=== PATIENT | female | born 1935 | race Caucasian/White ===

== ENCOUNTER → 2017-01-25 | Outpatient (CLI) | payer MEDICARE ==
[~2017-01-25] MED LIST: AUGMENTIN 875-1 EACH PO; BUPROPION XL150 MG PO; ELIQUIS5 MG PO; METOPROLOL TART25 MG PO; NEURONTIN 400400 MG PO; NOVOLOG MI100 UNIT/1 SQ; NYSTOP60 GM TP; PANTOPRAZOLE SO40 MG PO; TIKOSYN125 MCG PO; TYLENOL W/CODEIN1 E1 PO
== END ==
LOC: KOH-I 14:14
DX: R05 Cough (principal); R50.9 Fever, unspecified
CPT/HCPCS: 71020

== ENCOUNTER → 2017-02-22 | Outpatient (CLI) | payer MEDICARE | LOC: LAB 10:00 | DX: D64.9 Anemia, unspecified (principal) | CPT/HCPCS: 82272 ==

== ENCOUNTER 2020-09-13 13:22 | Inpatient (IN) | payer MEDICARE ==
[~2020-09-13 13:22] MED LIST changes: +ASPIRIN EC81 MG PO; +BREO ELLIPTA 11 EACH INH; +CYMBALTA60 MG PO; +DOK PLUS TABLE1 EACH PO; +HYTRIN CAP 1 MG1 MG PO; +LEVEMIR100 UNIT/1 SQ; +LIDODERM PATCH 5% TOP; +LIORESAL TAB 1010 MG PO; +MACROBID 100 M100 MG PO; +MAPAP325 MG PO; +NORCO 5-325 TA1 EACH PO; +NOVOLOG 10100 UNITS/ SQ; -NOVOLOG MI100 UNIT/1 SQ; +POLYETHYLENE GL17 GM PO; +PROTONIX40 MG PO; +THERAGRAN M TAB1 EA PO; +TRESIBA FL100 UNIT/1 SQ; +VENTOLIN HFA 66.7 GM INH; +VITAMIN D250000 UNIT PO; +VOLTAREN100 GM TP; +ZEBETA 5 MG TAB5 MG PO
[2020-09-13 15:32] LABS: HEMOGLOBIN 11.3 gm/dl (12.3-15.3); RED BLOOD COUNT 4.02 M/UL (4.00-5.10); WHITE BLOOD COUNT 5.7 K/UL (4.5-11.0)
[2020-09-14] MEDS ORDERED: GABAPENTIN300 MG PO (01:29)
[2020-09-14 06:20] LABS: HEMOGLOBIN 11.3 gm/dl (12.3-15.3); RED BLOOD COUNT 4.05 M/UL (4.00-5.10); WHITE BLOOD COUNT 4.6 K/UL (4.5-11.0)
[2020-09-15 05:08] LABS: BUN/CREATININE RATIO 31 (0-10)
[2020-09-15] MEDS ORDERED: DECADRON6 MG PO (12:12)
[2020-09-15] MEDS ORDERED: AZITHROMYCIN500 MG PO (12:12)
== END 2020-09-15 15:47 | disposition home or self-care (01) | DRG 177 ==
LOC: ER1 13:22 → CDU 18:12 → MED SURG 4 18:12
PROVIDERS: Emergency Medicine; ADMIT Internal Medicine
PROC: 8E0ZXY6 Isolation (ICD-10-PCS; 2020-09-13)
PROC: XW13325 Transfusion of Convalescent Plasma (Nonautologous) into Peripheral Vein, Percutaneous Approach, New Technology Group 5 (ICD-10-PCS; principal; 2020-09-14)
PROC: XW033E5 Introduction of Remdesivir Anti-infective into Peripheral Vein, Percutaneous Approach, New Technology Group 5 (ICD-10-PCS; 2020-09-14)
DX: U07.1 COVID-19 (principal); J12.82 Pneumonia due to coronavirus disease 2019; E11.9 Type 2 diabetes mellitus without complications; I25.10 Atherosclerotic heart disease of native coronary artery without angina pectoris; I48.0 Paroxysmal atrial fibrillation; I10 Essential (primary) hypertension; E78.5 Hyperlipidemia, unspecified; I49.5 Sick sinus syndrome; J44.9 Chronic obstructive pulmonary disease, unspecified; Z96.651 Presence of right artificial knee joint; Z95.0 Presence of cardiac pacemaker; Z90.49 Acquired absence of other specified parts of digestive tract; Z86.73 Personal history of transient ischemic attack (TIA), and cerebral infarction without residual deficits; Z90.710 Acquired absence of both cervix and uterus; Z88.5 Allergy status to narcotic agent; Z88.2 Allergy status to sulfonamides; Z88.7 Allergy status to serum and vaccine; Z91.041 Radiographic dye allergy status; Z82.49 Family history of ischemic heart disease and other diseases of the circulatory system; Z83.3 Family history of diabetes mellitus; Z80.0 Family history of malignant neoplasm of digestive organs
CPT/HCPCS: 36600; 71045; 80048; 80053; 81001; 82550; 82553; 82803; 82962; 83874; 84484; 85025; 86900; 86901; 86927; 87040; 87086; 94664; 96365; 96366; 96367; 96372; 96375; 96376; 99285; J0456; J0696; J1100; J1650; J7030; J7050; U0002

== ENCOUNTER 2020-09-28 14:37 | Emergency (ER) | payer MEDICARE ==
[~2020-09-28 14:37] MED LIST changes: +AZITHROMYCIN500 MG PO; +DECADRON6 MG PO; +GABAPENTIN300 MG PO
[2020-09-28 17:05] LABS: HEMOGLOBIN 13.8 gm/dl (12.3-15.3); RED BLOOD COUNT 4.93 M/UL (4.00-5.10); WHITE BLOOD COUNT 10.2 K/UL (4.5-11.0)
[2020-09-28] MEDS ORDERED: ZOFRAN ODT 4 MG4 MG PO (21:56)
== END 2020-09-28 23:10 | disposition home or self-care (01) ==
LOC: ER1 14:37
PROVIDERS: Family Medicine
DX: I48.20 Chronic atrial fibrillation, unspecified (principal); E11.65 Type 2 diabetes mellitus with hyperglycemia; R11.0 Nausea; R19.7 Diarrhea, unspecified; Z79.4 Long term (current) use of insulin; Z88.2 Allergy status to sulfonamides; Z91.041 Radiographic dye allergy status; Z86.16 Personal history of COVID-19
CPT/HCPCS: 36415; 71045; 80053; 82550; 82553; 83735; 83874; 83880; 84439; 84443; 84484; 85025; 99285

== ENCOUNTER → 2020-11-17 | Outpatient (CLI) | payer MEDICARE ==
[~2020-11-17] MED LIST changes: +ZOFRAN ODT 4 MG4 MG PO
[2020-11-17 16:48] LABS: HEMOGLOBIN 12.3 gm/dl (12.3-15.3); RED BLOOD COUNT 4.46 M/UL (4.00-5.10); WHITE BLOOD COUNT 10.5 K/UL (4.5-11.0)
[2020-11-19 10:14] LABS: CREATININE, URINE 306.7 mg/dL (Not Estab.)
== END ==
LOC: LAB 16:20
PROVIDERS: Nurse Practitioner Family
DX: E11.9 Type 2 diabetes mellitus without complications (principal); M54.6 Pain in thoracic spine; M54.5 Low back pain; E03.9 Hypothyroidism, unspecified; E55.9 Vitamin D deficiency, unspecified; M51.34 Other intervertebral disc degeneration, thoracic region; M51.36 Other intervertebral disc degeneration, lumbar region; M48.07 Spinal stenosis, lumbosacral region; S32.028D Other fracture of second lumbar vertebra, subsequent encounter for fracture with routine healing; X58.XXXD Exposure to other specified factors, subsequent encounter
CPT/HCPCS: 72070; 72100; 80053; 80061; 81001; 82043; 82570; 84439; 84443; 85025; 87086

== ENCOUNTER 2021-02-08 21:26 | Emergency (ER) | payer MEDICARE | END 2021-02-08 22:45 | disposition left against medical advice (07) | LOC: ER1 21:26 | DX: Z53.21 Procedure and treatment not carried out due to patient leaving prior to being seen by health care provider (principal) | CPT/HCPCS: 93005 ==

== ENCOUNTER → 2021-03-23 | Outpatient (CLI) | payer MEDICARE | LOC: LAB 11:29 | DX: M79.675 Pain in left toe(s) (principal); D64.9 Anemia, unspecified; E87.5 Hyperkalemia; Z98.1 Arthrodesis status | CPT/HCPCS: 36415; 73630; 82728; 83540; 83550; 83615; 84132; 84466; 85045 ==

== ENCOUNTER → 2022-01-20 | Outpatient (CLI) | payer MEDICARE | LOC: KOH-I 01-12 11:30 | DX: R10.9 Unspecified abdominal pain (principal); K59.00 Constipation, unspecified; K44.9 Diaphragmatic hernia without obstruction or gangrene | CPT/HCPCS: 74176 ==

== ENCOUNTER 2022-03-14 19:55 | Emergency (ER) | payer MEDICARE ==
[2022-03-14 21:20] LABS: HEMOGLOBIN 13.6 gm/dl (12.3-15.3); RED BLOOD COUNT 4.69 M/UL (4.00-5.10); WHITE BLOOD COUNT 9.7 K/UL (4.5-11.0)
== END 2022-03-15 00:25 | disposition home or self-care (01) ==
LOC: ER1 19:55
PROVIDERS: Physician Assistant
DX: E11.65 Type 2 diabetes mellitus with hyperglycemia (principal); E11.22 Type 2 diabetes mellitus with diabetic chronic kidney disease; N18.9 Chronic kidney disease, unspecified; Z79.01 Long term (current) use of anticoagulants; Z88.2 Allergy status to sulfonamides; Z20.822 Contact with and (suspected) exposure to COVID-19; Z91.041 Radiographic dye allergy status
CPT/HCPCS: 0240U; 71045; 80053; 81001; 82550; 82553; 83605; 83690; 84484; 85025; 87086; 99284